=== PATIENT | male | born 1975 | race Caucasian/White ===

== ENCOUNTER 2021-10-10 00:28 | Emergency (ER) | payer BC, SELFPAY ==
--- NOTE | 2021-10-10 00:31 | XRR_ITS ---
PROCEDURE INFORMATION: Exam: XR Abdomen Exam date and time: 10/10/2021 1:20 AM Age: 46 years old Clinical indication: Constipation; Abdominal pain; Localized; Patient HX: C/O lower abd pain with no bm x 6 days. TECHNIQUE: Imaging protocol: XR of the abdomen. Views: Frontal supine view of the abdomen. 1 View. COMPARISON: No relevant prior studies available. FINDINGS: Gastrointestinal tract: Relatively gasless abdomen suggesting fluid-filled bowel loops. Small amount of air within the stomach. Bones/joints: No acute osseous abnormality. XR/XR KUB [id number] IMPRESSION: Relatively gasless abdomen suggesting fluid-filled bowel loops.
[2021-10-10 00:38] VITALS: BP 184/106; PULSE 81; RESP 18; TEMP 36.1; O2SAT 96; BMI 29.9
--- NOTE | 2021-10-10 01:20 | ED_ITS ---
HPI - Abdominal Pain General: Chief Complaint: Abdominal Pain Stated Complaint: [place] had a BM in (6) Days Time Seen by Provider: 10/10/21 01:20 History of Present Illness: 46-year-old male patient comes in today with complaints of abdominal discomfort, diarrhea, and feeling of needing to defecate. Patient reports about 1 week ago he started having some diarrhea and now he feels like he cannot poop. Patient continues to have some small amounts of stool that is liquidy. Patient feels that he still needs to defecate. Patient denies any chronic medical problems. Patient has on-call that has colon cancer. Patient denies any vomitus, blood in the stool, or fever. Associated Symptoms: Reports constipation and diarrhea; Denies fever(s), hematochezia, nausea and vomiting Review of Systems General: Reports: 10 or more systems reviewed and unremarkable except in HPI and below Const: Denies: fever(s) Card: Denies: chest pain Resp: Denies: dyspnea GI: Reports: diarrhea and constipation; Denies: nausea, vomiting or hematochezia Skin/Breast: Denies: rash PFSH ED PFSH: Social History Smoking and tobacco status: former smoker Physical Exam Const: COMMON NORMALS: alert HENMT: COMMON NORMALS: normocephalic and Normal external nose present HEAD & SCALP: normocephalic NOSE: Normal external nose present Resp: COMMON NORMALS: normal respiratory effort Cardio: COMMON NORMALS: regular rate and regular rhythm RATE: regular rate RHYTHM: regular rhythm GI: COMMON NORMALS: Soft to palpation AUSCULTATION: Yes normoactive bowel sounds PALPATION: Yes Soft to palpation and No Tenderness to palpation present (GI) RECTAL EXAM: Yes normal sphincter tone and Yes hemorrhoids : COMMON NORMALS: Yes no CVA tenderness BLADDER/KIDNEY EXAM: Yes no CVA tenderness Back/Pelvis: COMMON NORMALS: no CVA tenderness Neuro: SENSORIUM/ORIENTATION: Yes alert Skin: COMMON NORMALS: no rashes or lesions noted GENERAL SKIN EXAM: no rashes or lesions noted Course Vital Signs: Vital signs: Vital Signs Temperature 98.1 F 10/10/21 01:57 Pulse Rate 59 L 10/10/21 01:57 Respiratory Rate 18 10/10/21 01:57 Blood Pressure 161/105 10/10/21 01:57 Pulse Oximetry 95 10/10/21 01:57 MDM - Abdominal Pain Medical Decision Making 46-year-old male patient comes in today with complaints of abdominal discomfort and diarrhea stool. Patient does report that he had used some Pepto-Bismol for couple of days due to having some diarrhea. And then patient felt that he needed to have a bowel movement and took some bisacodyl laxative last night and today. Since then patient had some increase feeling of defecation with only small amounts of diarrhea. On exam abdomen soft nontender. Skin is warm and dry. Vital signs are normal except for some elevation in blood pressure. Rectal exam noted normal sphincter tone and a small external hemorrhoid. No fecal impaction was noted. Differential diagnosis includes constipation, bowel obstruction, diarrhea, viral infection. KUB noted no constipation or noticeable bowel obstruction. Feel the patient probably has had a viral syndrome and has had persistent diarrhea that has kept the bowel free. Patient then took some laxatives which aggravated his bowel more. I recommended patient use Metamucil to help bulk up stool and MiraLAX to maintain hydration of the bowel. Patient was also recommended to drink plenty of fluids. Discussed with patient the need for follow-up with primary care for further evaluation if symptoms persist as he may need to have a colonoscopy for further evaluation. Patient reported understanding agreed to plan. Lab Data Labs/Radiology: Radiology Impressions KUB X-Ray 10/10/21 00:31 IMPRESSION: Relatively gasless abdomen suggesting fluid-filled bowel loops. Discharge Plan Discharge Patient Disposition: Home Clinical Impression: Hemorrhoids, external Abdominal pain Qualifiers: Abdominal location: generalized Qualified Code(s): R10.84 - Generalized abdo wilber pain Condition: Stable Prescriptions: New Metamucil 3.4 gram/5.4 gram powder 1 tbsp PO TID Qty: 660 0RF Rx Instructions: mix into at least 8 oz of water or juice before administering Miralax 17 gram/dose powder 17 g PO DAILY Qty: 238 0RF No Action neomycin-polymyxin B-dexameth [Maxitrol] 3.5mg/mL-10,000 unit/mL-0.1 % drops,suspension 1 drp ophthalmic (eye) Q8H 7 Days Qty: 5 0RF Discharge Orders: Discharge ED (Routine); Ordered 10/10/21 Ordered By: Valdo Reed Discharge Diet: Usual diet Discharge Activity: Increase activity as tolerated Patient Instructions: Abdominal Pain (ED) Activity Restrictions/Additional Instructions: Avoid the use of strong tmkt-mjp-[id number] laxatives. Use Metamucil 1 tablespoon 3 times a day with 8 ounces of water. Use MiraLAX 1 dose daily. Make sure to drink at least 2 L of water or fluids a day. Monitor for fever greater than 100.4. Monitor for worsening pain or blood in vomitus or stool. With any of the symptoms you need to be evaluated immediately. Follow-up with primary care in 1 week for recheck. If abnormal bowel symptoms persist recommendation of colonoscopy would be warranted. Coding Level of Care Code ED Medical Assistant for Nelly Melgar
[2021-10-10 01:57] VITALS: BP 161/105; PULSE 59; RESP 18; TEMP 36.7; O2SAT 95
== END 2021-10-10 01:58 | disposition home or self-care (01) ==
PROVIDERS: Emergency Provider Nurse Practitioner Family
DX: R10.84 Generalized abdominal pain (principal); K64.4 Residual hemorrhoidal skin tags
CPT/HCPCS: 74018; 99283

== ENCOUNTER 2021-12-28 23:52 | Emergency (ER) | payer BC, SELFPAY ==
[2021-12-29] VITALS: BP 155/103; PULSE 68; RESP 16; TEMP 36.8; O2SAT 96; BMI 28.7
--- NOTE | 2021-12-29 00:02 | ECG_ITS ---
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 Measurements Intervals [place] Rate: 68 P: 62 WI: 193 QRS: 55 QRSD: 127 T: 62 QT: 384 QTc: 411 Interpretive Statements SINUS RHYTHM WITH SINUS ARRHYTHMIA POSSIBLE RIGHT VENTRICULAR CONDUCTION DELAY [RSR (QR) IN V1/V2] No previous ECG available for comparison Electronically Signed On 12-30-2021 17:41:39 CDT by Shorty Weber M.D. [email or web address]
--- NOTE | 2021-12-29 00:09 | XRR_ITS ---
PROCEDURE INFORMATION: Exam: XR Chest Exam date and time: 12/29/2021 12:18 AM Age: 46 years old Clinical indication: Pain; Right-sided; Additional info: Right chest pain TECHNIQUE: Imaging protocol: Radiologic exam of the chest. Views: 1 view. COMPARISON: CR XR KUB [id number] 10/10/2021 1:20 AM FINDINGS: Lungs: Linear atelectasis at the lung bases, right worse than left. Click impression. No consolidative pulmonary infiltrate noted. Pleural spaces: No pleural effusion. No pneumothorax. Heart/Mediastinum: No cardiomegaly. Bones/joints: Unremarkable. XR/XR chest 1V portable [id number] IMPRESSION: No consolidative pulmonary infiltrate noted.
--- NOTE | 2021-12-29 00:11 | W.ED.CHESTPA ---
Documented by User: RAEANN Joseph 12/29/21 18:01 HPI - Chest Pain General: Chief Complaint: Chest Pain Stated Complaint: chest tenderness Time Seen by Provider: 12/29/21 00:04 History of Present Illness: 46-year-old male patient comes in today with right anterior lower chest wall pain with deep inspiration. Patient reports pain has been going on 2 to 3 days. Patient reports pain is worse with deep inspiration. Patient appears nontoxic. Patient appears in no pain at rest. Patient reports taking shorter shallower breaths in order to avoid the discomfort. Associated symptoms: Deny dyspnea or fever(s) Review of Systems Const: Denies: fever(s) Card: Reports: chest pain Resp: Reports: pain on inspiration; Denies: dyspnea or non-productive cough PFSH ED PFSH: Social History Smoking and tobacco status: former smoker Physical Exam Const: COMMON NORMALS: alert HENMT: COMMON NORMALS: normocephalic HEAD & SCALP: normocephalic Neck/C-Spine: COMMON NORMALS: full ROM Chest: CHEST: No tenderness Resp: COMMON NORMALS: normal respiratory effort and clear to auscultation bilaterally AUSCULTATION: clear to auscultation bilaterally Cardio: COMMON NORMALS: regular rate and regular rhythm RATE: regular rate RHYTHM: regular rhythm GI: COMMON NORMALS: Soft to palpation and non-tender PALPATION: Yes Soft to palpation Back/Pelvis: THORACIC SPINE/UPPER BACK: Yes normal to inspection LUMBAR SPINE/LOWER BACK: Yes normal to inspection Extremity: COMMON NORMALS: normal to inspection and full ROM Neuro: SENSORIUM/ORIENTATION: Yes alert Skin: COMMON NORMALS: no rashes or lesions noted GENERAL SKIN EXAM: no rashes or lesions noted Course ED course: 1255, troponin was negative at 6. Patient's D-dimer was slightly elevated 0.88. I reviewed this with patient with recommendations for CTA of the lung for PE rule out. Patient reported understanding agreed to plan. Patient is resting well with no acute distress. Vital Signs: Vital signs: Vital Signs Temperature 98.2 F 12/29/21 00:00 Pulse Rate 77 12/29/21 01:30 Respiratory Rate 16 12/29/21 02:58 Blood Pressure 158/99 12/29/21 01:30 Pulse Oximetry 98 12/29/21 02:58 Oxygen Delivery Me thod 12/29/21 00:00 MDM - Chest Pain Medical Decision Making 46-year-old male patient comes in today for complaints of some right anterior rib discomfort with deep inspiration for 2-3 days. On exam there is no tenderness with palpation of the ribs. Lungs are clear to auscultation. Patient has increased discomfort with a sharp pain in the lower anterior right rib area with deep inspiration. Vital signs are normal with blood pressure slightly elevated at 155 systolic. No fever is noted. Abdomen soft nontender. No pain is noted along the spine. No CVA tenderness is noted. Differential diagnosis includes costochondritis, pleurisy, pneumonia, pulmonary embolism, ACS. Lab Data : 12/29/21 00:14 12/29/21 00:14 Radiology Impressions Chest X-Ray 12/29/21 00:09 IMPRESSION: No consolidative pulmonary infiltrate noted. Chest CTA 12/29/21 00:36 IMPRESSION: 1. No evidence of acute pulmonary embolism. 2. Small right pleural effusion and bilateral lower lobe atelectasis. 3. 4 mm indeterminate nodule in the right lower lobe. No follow-up is needed in a low risk patient, or optional 12 months follow-up in a high-risk patient according to Fleischner criteria. Laboratory Results WBC 12.3 10^3/uL (4.0-10.0) H 12/29/21 00:14 RBC 4.72 10^6/uL (4.1-5.3) 12/29/21 00:14 Hgb 15.0 g/dL (11.7-16.6) 12/29/21 00:14 Hct 43.3 % (42.0-52.0) 12/29/21 00:14 MCV 91.7 fl (80-94) 12/29/21 00:14 MCH 31.8 pg (28.0-34.0) 12/29/21 00:14 MCHC 34.6 g/dL (30.0-36.0) 12/29/21 00:14 RDW 11.8 % (12.1-15.1) L 12/29/21 00:14 Plt Count 249 10^3/cmm (130-400) 12/29/21 00:14 MPV 9.8 fL (7.4-10.4) 12/29/21 00:14 Neut % (Auto) 61.4 % 12/29/21 00:14 Lymph % (Auto) 30.1 % 12/29/21 00:14 Garza % (Auto) 5.3 % 12/29/21 00:14 Eos % (Auto) 2.5 % 12/29/21 00:14 Baso % (Auto) 0.5 % 12/29/21 00:14 Neut # (Auto) 7.54 10^3/uL (1.8-7.7) 12/29/21 00:14 Lymph # (Auto) 3.7 10^3/uL (0.8-4.8) 12/29/21 00:14 Garza # (Auto) 0.7 10^3/uL (0.2-0.9) 12/29/21 00:14 Eos # (Auto) 0.3 10^3/uL (0.0-0.8) 12/29/21 00:14 Baso # (Auto) 0.1 10^3/uL (0.0-0.1) 12/29/21 00:14 Nucleated RBC % (auto) 0 % 12/29/21 00:14 Nucleated RBCs # 0.0 /100WBC 12/29/21 00:14 D-Dimer 0.88 ug/mIFEU (0-0.59) H 12/29/21 00:14 Sodium 141 mmol/L (136-145) 12/29/21 00:14 Potassium 4.1 mmol/L (3.5-5.1) 12/29/21 00:14 Chloride 103 mmol/L (98-107) 12/29/21 00:14 Carbon Dioxide 27 mmol/L (22-29) 12/29/21 00:14 Anion Gap 15.1 (5-19) 12/29/21 00:14 BUN 12 mg/dL (6-20) 12/29/21 00:14 Creatinine 0.7 mg/dL (0.7-1.2) 12/29/21 00:14 GFR Calculation 122.5 mL/min (90-130) 12/29/21 00:14 Glucose 122 mg/dL (65-115) H 12/29/21 00:14 Calculated Osmolality 293 mOsm/kg (285-295) 12/29/21 00:14 Calcium 9.4 mg/dL (8.5-10.5) 12/29/21 00:14 Total Bilirubin 0.5 mg/dL (0.15-1.2) 12/29/21 00:14 AST 25 U/L (0-40) 12/29/21 00:14 ALT 30 U/L (0-41) 12/29/21 00:14 Alkaline Phosphatase 102 IU/L (40-130) 12/29/21 00:14 Troponin T Gen 5 ng/L 6 ng/L (0-15) 12/29/21 00:14 Total Protein 6.9 g/dL (6.6-8.7) 12/29/21 00:14 Albumin 4.3 g/dL (3.5-5.2) 12/29/21 00:14 Globulin 2.6 g/dL (1.3-4.6) 12/29/21 00:14 EKG Data EKG 1: EKG interpretation date: 12/29/21 EKG interpretation time: 00:27 Interpretation: Sinus arrhythmia with a irregular rate at 70. No ST elevation or ectopy is noted. No prior exam was available for comparison. Discharge Plan Discharge Patient Disposition: Home Clinical Impression: Chest pain, Pneumonia, Pleural effusion, Incidental pulmonary nodule, > 3mm and < 8mm Condition: Stable Prescriptions: New amoxicillin-pot clavulanate 875-125 mg tablet 1 tab PO BID Qty: 20 0RF albuterol sulfate 90 mcg/actuation HFA aerosol inhaler 2 inh inhalation Q4H PRN (Reason: shortness of breath or wheezing) Qty: 8.5 1RF No Action neomycin-polymyxin B-dexameth [Maxitrol] 3.5mg/mL-10,000 unit/mL-0.1 % drops,suspension 1 drp ophthalmic (eye) Q8H 7 Days Qty: 5 0RF Metamucil 3.4 gram/5.4 gram powder 1 tbsp PO TID Qty: 660 0RF Rx Instructions: mix into at least 8 oz of water or juice before administering Miralax 17 gram/dose powder 17 g PO DAILY Qty: 238 0RF Discharge Orders: Discharge ED (Routine); Ordered 12/29/21 Ordered By: Houston Jovel Discharge Diet: Usual diet Discharge Activity: Increase activity as tolerated Patient Instructions: Chest Pain (ED), Pulmonary Nodules (ED), Pneumonia (ED), Pleural Effusion Activity Restrictions/Additional Instructions: Thank you for visiting the emergency department. You were seen and evaluated for chest discomfort. The exact cause of your symptoms is unclear though likely related to pneumonia with adjacent pleural effusion. Given history of smoking you likely also have exacerbation of underlying lung disease. This will be treated with antibiotics and steroids. Additionally I will prescribe an inhaler. Please follow-up with your primary care provider. As discussed you can optionally have a repeat CT scan in 12 months for tracking of your pulmonary nodule. Please return to the emergency department for worsening symptoms or anything else that you are concerned about a feel needs emergency department evaluation. Sign Out Sign Out Data: Patient Sign Out occurred on 12/29/21 at 02:00. Patient's care was discussed, and care was transferred from to Houston Jovel MD. Coding Level of Care Code ED Internal Communications Specialist for Chg Fwd Exam Comprehensive Documented by User: Houston Jovel MD 01/12/22 20:18 HPI - Chest Pain General: Chief Complaint: Chest Pain Stated Complaint: chest tenderness Time Seen by Provider: 12/29/21 00:04 [facility] ED PFSH: Social History Smoking and tobacco status: former smoker Course Vital Signs: Vital signs: Vital Signs Temperature 98.2 F 12/29/21 00:00 Pulse Rate 77 12/29/21 01:30 Respiratory Rate 16 12/29/21 02:58 Blood Pressure 158/99 12/29/21 01:30 Pulse Oximetry 98 12/29/21 02:58 Oxygen Delivery Me thod 12/29/21 00:00 MDM - Chest Pain Medical Decision Making 46-year-old male patient comes in today for complaints of some right anterior rib discomfort with deep inspiration for 2-3 days. On exam there is no tenderness with palpation of the ribs. Lungs are clear to auscultation. Patient has increased discomfort with a sharp pain in the lower anterior right rib area with deep inspiration. Vital signs are normal with blood pressure slightly elevated at 155 systolic. No fever is noted. Abdomen soft nontender. No pain is noted along the spine. No CVA tenderness is noted. Differential diagnosis includes costochondritis, pleurisy, pneumonia, pulmonary embolism, ACS. I discussed this case with Mario Reed NP. I reviewed documentation. I personally reviewed imaging and laboratory studies but I reevaluated the patient. He is improved after treatment and satisfactory for outpatient management. Return cautions given and prescriptions discussed. Houston Jovel MD Emergency Medicine Lab Data : 12/29/21 00:14 12/29/21 00:14 Radiology Impressions Chest X-Ray 12/29/21 00:09 IMPRESSION: No consolidative pulmonary infiltrate noted. Chest CTA 12/29/21 00:36 IMPRESSION: 1. No evidence of acute pulmonary embolism. 2. Small right pleural effusion and bilateral lower lobe atelectasis. 3. 4 mm indeterminate nodule in the right lower lobe. No follow-up is needed in a low risk patient, or optional 12 months follow-up in a high-risk patient according to Fleischner criteria. Laboratory Results WBC 12.3 10^3/uL (4.0-10.0) H 12/29/21 00:14 RBC 4.72 10^6/uL (4.1-5.3) 12/29/21 00:14 Hgb 15.0 g/dL (11.7-16.6) 12/29/21 00:14 Hct 43.3 % (42.0-52.0) 12/29/21 00:14 MCV 91.7 fl (80-94) 12/29/21 00:14 MCH 31.8 pg (28.0-34.0) 12/29/21 00:14 MCHC 34.6 g/dL (30.0-36.0) 12/29/21 00:14 RDW 11.8 % (12.1-15.1) L 12/29/21 00:14 Plt Count 249 10^3/cmm (130-400) 12/29/21 00:14 MPV 9.8 fL (7.4-10.4) 12/29/21 00:14 Neut % (Auto) 61.4 % 12/29/21 00:14 Lymph % (Auto) 30.1 % 12/29/21 00:14 Garza % (Auto) 5.3 % 12/29/21 00:14 Eos % (Auto) 2.5 % 12/29/21 00:14 Baso % (Auto) 0.5 % 12/29/21 00:14 Neut # (Auto) 7.54 10^3/uL (1.8-7.7) 12/29/21 00:14 Lymph # (Auto) 3.7 10^3/uL (0.8-4.8) 12/29/21 00:14 Garza # (Auto) 0.7 10^3/uL (0.2-0.9) 12/29/21 00:14 Eos # (Auto) 0.3 10^3/uL (0.0-0.8) 12/29/21 00:14 Baso # (Auto) 0.1 10^3/uL (0.0-0.1) 12/29/21 00:14 Nucleated RBC % (auto) 0 % 12/29/21 00:14 Nucleated RBCs # 0.0 /100WBC 12/29/21 00:14 D-Dimer 0.88 ug/mIFEU (0-0.59) H 12/29/21 00:14 Sodium 141 mmol/L (136-145) 12/29/21 00:14 Potassium 4.1 mmol/L (3.5-5.1) 12/29/21 00:14 Chloride 103 mmol/L (98-107) 12/29/21 00:14 Carbon Dioxide 27 mmol/L (22-29) 12/29/21 00:14 Anion Gap 15.1 (5-19) 12/29/21 00:14 BUN 12 mg/dL (6-20) 12/29/21 00:14 Creatinine 0.7 mg/dL (0.7-1.2) 12/29/21 00:14 GFR Calculation 122.5 mL/min (90-130) 12/29/21 00:14 Glucose 122 mg/dL (65-115) H 12/29/21 00:14 Calculated Osmolality 293 mOsm/kg (285-295) 12/29/21 00:14 Calcium 9.4 mg/dL (8.5-10.5) 12/29/21 00:14 Total Bilirubin 0.5 mg/dL (0.15-1.2) 12/29/21 00:14 AST 25 U/L (0-40) 12/29/21 00:14 ALT 30 U/L (0-41) 12/29/21 00:14 Alkaline Phosphatase 102 IU/L (40-130) 12/29/21 00:14 Troponin T Gen 5 ng/L 6 ng/L (0-15) 12/29/21 00:14 Total Protein 6.9 g/dL (6.6-8.7) 12/29/21 00:14 Albumin 4.3 g/dL (3.5-5.2) 12/29/21 00:14 Globulin 2.6 g/dL (1.3-4.6) 12/29/21 00:14 Discharge Plan Discharge Patient Disposition: Home Clinical Impression: Chest pain, Pneumonia, Pleural effusion, Incidental pulmonary nodule, > 3mm and < 8mm Condition: Stable Prescriptions: New amoxicillin-pot clavulanate 875-125 mg tablet 1 tab PO BID Qty: 20 0RF albuterol sulfate 90 mcg/actuation HFA aerosol inhaler 2 inh inhalation Q4H PRN (Reason: shortness of breath or wheezing) Qty: 8.5 1RF No Action neomycin-polymyxin B-dexameth [Maxitrol] 3.5mg/mL-10,000 unit/mL-0.1 % drops,suspension 1 drp ophthalmic (eye) Q8H 7 Days Qty: 5 0RF Metamucil 3.4 gram/5.4 gram powder 1 tbsp PO TID Qty: 660 0RF Rx Instructions: mix into at least 8 oz of water or juice before administering Miralax 17 gram/dose powder 17 g PO DAILY Qty: 238 0RF Discharge Orders: Discharge ED (Routine); Ordered 12/29/21 Ordered By: Houston Jovel Discharge Diet: Usual diet Discharge Activity: Increase activity as tolerated Patient Instructions: Chest Pain (ED), Pulmonary Nodules (ED), Pneumonia (ED), Pleural Effusion Activity Restrictions/Additional Instructions: Thank you for visiting the emergency department. You were seen and evaluated for chest discomfort. The exact cause of your symptoms is unclear though likely related to pneumonia with adjacent pleural effusion. Given history of smoking you likely also have exacerbation of underlying lung disease. This will be treated with antibiotics and steroids. Additionally I will prescribe an inhaler. Please follow-up with your primary care provider. As discussed you can optionally have a repeat CT scan in 12 months for tracking of your pulmonary nodule. Please return to the emergency department for worsening symptoms or anything else that you are concerned about a feel needs emergency department evaluation. Sign Out Sign Out Data: Patient Sign Out occurred on 12/29/21 at 02:00. Patient's care was discussed, and care was transferred from to Houston Jovel MD. Coding Level of Care Code ED Internal Communications Specialist for Chg Fwd Exam Comprehensive
[2021-12-29 00:21] LABS: Basophils # 0.1 10^3/uL (0.0-0.1); Basophils % 0.5 %; Eosinophils # 0.3 10^3/uL (0.0-0.8); Eosinophils % 2.5 %; Hematocrit 43.3 % (42.0-52.0); Lymphocytes # 3.7 10^3/uL (0.8-4.8); Lymphocytes % 30.1 %; Mean Corpuscular HGB Conc 34.6 g/dL (30.0-36.0); Mean Corpuscular Hemoglobin 31.8 pg (28.0-34.0); Mean Corpuscular Volume 91.7 fl (80-94); Mean Platelet Volume 9.8 fL (7.4-10.4); Monocytes # 0.7 10^3/uL (0.2-0.9); Monocytes % 5.3 %; Neutrophils # 7.54 10^3/uL (1.8-7.7); Neutrophils % 61.4 %; Nucleated Red Blood Cells % 0 %; Platelet Count 249 10^3/cmm (130-400); Red Blood Count 4.72 10^6/uL (4.1-5.3); Red Cell Distribution Width 11.8 % (12.1-15.1); White Blood Count 12.3 10^3/uL (4.0-10.0)
[2021-12-29 00:35] LABS: D Dimer 0.88 ug/mIFEU (0-0.59)
--- NOTE | 2021-12-29 00:36 | CTR_ITS ---
PROCEDURE INFORMATION: Exam: CTA Chest With Contrast Exam date and time: 12/29/2021 12:53 AM Age: 46 years old Clinical indication: Pain; Right-sided; Additional info: Right anterior chest pain with inspiration TECHNIQUE: Imaging protocol: Computed tomographic angiography of the chest with contrast. 3D rendering (Not supervised by radiologist): MIP and/or 3D reconstructed images were created by the technologist. Radiation optimization: All CT scans at this facility use at least one of these dose optimization techniques: automated exposure control; mA and/or kV adjustment per patient size (includes targeted exams where dose is matched to clinical indication); or iterative reconstruction. Contrast material: OMNI 350; Contrast volume: 95 ml; Contrast route: INTRAVENOUS (IV); COMPARISON: CR (CHEST, ) 12/29/2021 12:18 AM RADIATION DOSE METRICS: Total DLP (mGy-cm): 451.35 FINDINGS: Tubes, catheters and devices: N/A Pulmonary arteries: Main pulmonary arteries: No evidence of thromboembolic disease. Lobar pulmonary arteries: No evidence of thromboembolic disease. Segmental pulmonary arteries: No evidence of thromboembolic disease. Subsegmental pulmonary arteries: No evidence of thromboembolic disease. Aorta: Unremarkable. No aortic aneurysm. No aortic dissection. Lungs: There are bibasilar opacities, likely atelectasis. Diffuse mosaic appearance in the lower lobes may represent airspace or vascular disease. There is a 4 mm indeterminate nodule in the right lower lobe, (series 6, image 31). Pleural spaces: There is a small right pleural effusion and adjacent atelectasis. Heart: No evidence of thromboembolic disease in the right heart chamber. There is left atrial enlargement. There is cardiomegaly. There is thickening of the interventricular septum and the left ventricular wall. No pericardial effusion. Lymph nodes: No thoracic lymphadenopathy by CT size criteria. Spleen: A small splenule is noted. Intraperitoneal space: No acute CT findings in the imaged upper abdomen. Bones/joints: No acute fractures are identified Soft tissues: Suspected mild gynecomastia. CT/CT angio chest PE protcl [id number] IMPRESSION: 1. No evidence of acute pulmonary embolism. 2. Small right pleural effusion and bilateral lower lobe atelectasis. 3. 4 mm indeterminate nodule in the right lower lobe. No follow-up is needed in a low risk patient, or optional 12 months follow-up in a high-risk patient according to Fleischner criteria.
[2021-12-29 00:43] LABS: Alanine Aminotransferase 30 U/L (0-41); Albumin Level 4.3 g/dL (3.5-5.2); Alkaline Phosphatase 102 IU/L (40-130); Anion Gap 15.1 (5-19); Aspartate Amino Transferase 25 U/L (0-40); Blood Urea Nitrogen 12 mg/dL (6-20); Calcium 9.4 mg/dL (8.5-10.5); Carbon Dioxide 27 mmol/L (22-29); Chloride 103 mmol/L (98-107); Globulin 2.6 g/dL (1.3-4.6); Glomerular Filtration Rate 122.5 mL/min (90-130); Glucose 122 mg/dL (65-115); Osmolality Calculated 293 mOsm/kg (285-295); Potassium 4.1 mmol/L (3.5-5.1); Sodium 141 mmol/L (136-145); Total Bilirubin 0.5 mg/dL (0.15-1.2); Total Protein 6.9 g/dL (6.6-8.7)
[2021-12-29 00:44] LABS: Troponin T (5th) Once 6 ng/L (0-15)
[2021-12-29 01:30] VITALS: BP 158/99; PULSE 77; RESP 21; O2SAT 95
[2021-12-29 02:58] VITALS: RESP 16; O2SAT 98
== END 2021-12-29 03:00 | disposition home or self-care (01) ==
PROVIDERS: Nurse Practitioner Family; Emergency Provider Emergency Medicine
DX: R07.9 Chest pain, unspecified (principal); J18.9 Pneumonia, unspecified organism; J90 Pleural effusion, not elsewhere classified; R91.1 Solitary pulmonary nodule; Z87.891 Personal history of nicotine dependence
CPT/HCPCS: 71045; 71275; 80053; 84484; 85025; 85378; 93005; 99285; Q9967